=== PATIENT | male | born 1955 | race Caucasian/White ===

== ENCOUNTER 2020-10-26 17:54 | Observation (INO) | payer OTHER ==
[~2020-10-26] VITALS: Ht 167.6 cm; Wt 59.0 kg
[2020-10-26] MEDS ORDERED: LEVSOD150 PO (18:02)
[2020-10-26] MEDS ORDERED: BUPR75 PO (18:02)
[2020-10-26] MEDS ORDERED: TRAZ50 PO (18:02)
[2020-10-26 19:52] LABS: BASOPHILS ABSOLUTE AUTO 0.03 K/mm3 (0.00-0.23); BASOPHILS PERCENT AUTO 0 % (0-2); EOSINOPHILS ABSOLUTE AUTO 0.01 K/mm3 (0.00-0.68); EOSINOPHILS PERCENT AUTO 0 % (0-6); Hematocrit 36.2 % (37.0-53.0); Hemoglobin 13.4 g/dL (13.5-17.5); IMMATURE GRAN ABSOLUTE AUTO 0.04 K/mm3 (0.00-0.10); IMMATURE GRAN PERCENT AUTO 1 % (0-1); LYMPHOCYTES ABSOLUTE AUTO 1.19 K/mm3 (0.84-5.20); LYMPHOCYTES PERCENT AUTO 14 % (21-46); MONOCYTES ABSOLUTE AUTO 0.52 K/mm3 (0.16-1.47); MONOCYTES PERCENT AUTO 6 % (4-13); Mean Corpuscular HGB 32.1 pg (26.0-34.0); Mean Corpuscular Volume 87 fL (80-100); Mean Platelet Volume 10.5 fL (9.1-12.4); NEUTROPHILS ABSOLUTE AUTO 6.83 K/mm3 (1.96-9.15); NEUTROPHILS PERCENT AUTO 79 % (41-73); Platelet Count 98 K/mm3 (150-400); RDW Standard Deviation 41.1 fL (35.1-46.3); Red Blood Cell Count 4.17 M/mm3 (4.30-5.90); White Blood Cell Count 8.62 K/mm3 (4.00-11.30)
[2020-10-26 20:09] LABS: Alanine Aminotransfer (ALT/SGP 147 U/L (12-78); Albumin, Blood 3.3 g/dL (3.4-5.0); Albumin/Globulin Ratio 1.4 (0.8-1.8); Alk Phos 34 U/L (50-136); Anion Gap 12 mmol/L (6-16); Aspartate Aminotrans (AST/SGOT 143 U/L (12-37); Bilirubin, Total 1.8 mg/dL (0.1-1.0); Blood Urea Nitrogen 28 mg/dL (8-24); CO2, Blood 26 mmol/L (21-32); Calcium, Blood 7.9 mg/dL (8.5-10.1); Chloride, Blood 99 mmol/L (98-108); Creatinine, Blood 0.82 mg/dL (0.60-1.20); Globulin, Blood 2.3 g/dL (2.2-4.0); Glomerular Filtration Rate >60 (60-); Glucose, Blood 151 mg/dL (70-99); Magnesium, Blood 2.3 mg/dL (1.6-2.4); Potassium, Blood 3.5 mmol/L (3.5-5.5); Sodium, Blood 137 mmol/L (136-145); Total Protein, Blood 5.6 g/dL (6.4-8.2)
[2020-10-26 21:56] LABS: Ethanol (Alcohol), Blood, Med <3 mg/dL
[2020-10-27 09:00] LABS: Alanine Aminotransfer (ALT/SGP 137 U/L (12-78); Albumin, Blood 3.2 g/dL (3.4-5.0); Albumin/Globulin Ratio 1.3 (0.8-1.8); Alk Phos 37 U/L (50-136); Anion Gap 7 mmol/L (6-16); Aspartate Aminotrans (AST/SGOT 116 U/L (12-37); Bilirubin, Total 1.7 mg/dL (0.1-1.0); Blood Urea Nitrogen 18 mg/dL (8-24); Bun/Creatinine Ratio 23.1 (12.0-20.0); CO2, Blood 29 mmol/L (21-32); Calcium, Blood 7.4 mg/dL (8.5-10.1); Chloride, Blood 101 mmol/L (98-108); Creatinine, Blood 0.78 mg/dL (0.60-1.20); Globulin, Blood 2.4 g/dL (2.2-4.0); Glomerular Filtration Rate >60 (60-); Glucose, Blood 125 mg/dL (70-99); Magnesium, Blood 2.3 mg/dL (1.6-2.4); Potassium, Blood 3.3 mmol/L (3.5-5.5); Sodium, Blood 137 mmol/L (136-145); Total Protein, Blood 5.6 g/dL (6.4-8.2)
[2020-10-27 09:04] LABS: Phosphorus, Blood 0.9 mg/dL (2.5-4.9)
[2020-10-27] MEDS ORDERED: CHLO25 PO (12:03)
== END 2020-10-27 16:13 | disposition home or self-care (01) ==
LOC: ER 17:54 → ERHOLD 17:55
PROVIDERS: Emergency Medicine; Family Medicine; ADMIT Internal Medicine
DX: F10.232 Alcohol dependence with withdrawal with perceptual disturbance (principal); Y90.0 Blood alcohol level of less than 20 mg/100 ml; R74.01 Elevation of levels of liver transaminase levels; E83.39 Other disorders of phosphorus metabolism; E87.6 Hypokalemia; E44.0 Moderate protein-calorie malnutrition; F32.9 Major depressive disorder, single episode, unspecified; E03.9 Hypothyroidism, unspecified; F17.210 Nicotine dependence, cigarettes, uncomplicated; Z66 Do not resuscitate; Z88.6 Allergy status to analgesic agent; Z88.8 Allergy status to other drugs, medicaments and biological substances; Z79.899 Other long term (current) drug therapy
CPT/HCPCS: 36415; 70450; 80053; 83735; 84100; 85025; 96361; 96365; 96367; 96375; 99285-25; A9270; G0378; G0480; J1650; J2405; J3411; J3475; J3480; J7042; J7060

== ENCOUNTER 2021-09-05 17:19 | Inpatient (IN) | payer OTHER ==
[~2021-09-05] VITALS: Ht 167.6 cm; Wt 58.8 kg
[~2021-09-05 17:19] MED LIST: Budeprion Xl300 MG PO; CHLO25 PO; LEVSOD150 PO; TRAZ50 PO
[2021-09-05 18:35] LABS: Albumin, Blood 3.4 g/dL (3.4-5.0); Albumin/Globulin Ratio 0.8 (0.8-1.8); Bun/Creatinine Ratio 18.6 (12.0-20.0); Calcium, Blood 9.7 mg/dL (8.5-10.1); Creatinine, Blood 1.13 mg/dL (0.60-1.20); Globulin, Blood 4.5 g/dL (2.2-4.0); Potassium, Blood 3.9 mmol/L (3.5-5.5); Total Protein, Blood 7.9 g/dL (6.4-8.2)
[2021-09-05 18:39] LABS: BASOPHILS ABSOLUTE AUTO 0.05 K/mm3 (0.00-0.23); BASOPHILS PERCENT AUTO 0 % (0-2); EOSINOPHILS ABSOLUTE AUTO 0.03 K/mm3 (0.00-0.68); EOSINOPHILS PERCENT AUTO 0 % (0-6); Hematocrit 40.4 % (37.0-53.0); Hemoglobin 14.2 g/dL (13.5-17.5); IMMATURE GRAN ABSOLUTE AUTO 0.06 K/mm3 (0.00-0.10); IMMATURE GRAN PERCENT AUTO 1 % (0-1); LYMPHOCYTES ABSOLUTE AUTO 1.01 K/mm3 (0.84-5.20); LYMPHOCYTES PERCENT AUTO 8 % (21-46); MONOCYTES ABSOLUTE AUTO 1.24 K/mm3 (0.16-1.47); MONOCYTES PERCENT AUTO 10 % (4-13); Mean Corpuscular HGB 32.2 pg (26.0-34.0); Mean Corpuscular HGB Conc 35.1 g/dL (31.5-36.5); Mean Corpuscular Volume 92 fL (80-100); Mean Platelet Volume 9.1 fL (9.1-12.4); NEUTROPHILS ABSOLUTE AUTO 10.19 K/mm3 (1.96-9.15); NEUTROPHILS PERCENT AUTO 81 % (41-73); Platelet Count 287 K/mm3 (150-400); RDW Coefficient Variation 12.3 % (11.7-14.2); RDW Standard Deviation 42.2 fL (35.1-46.3); Red Blood Cell Count 4.41 M/mm3 (4.30-5.90); White Blood Cell Count 12.58 K/mm3 (4.00-11.30)
[2021-09-05 20:46] LABS: Source, Urine Clean Catch
[2021-09-05] MEDS ORDERED: TAMS.4ER PO (20:49)
[2021-09-05 21:00] LABS: Appearance, Urine Clear (Clear); Bilirubin, Urine Neg (Neg); Blood, Urine Neg (Neg); Color, Urine Yellow (P-Yellow); Glucose Qualitative, Urine Neg (Neg); Ketones, Urine 3+ (Neg); Leukocyte Esterase, Urine 1+ (Neg); Nitrite, Urine Neg (Neg); Protein, Urine 1+ (Neg); Urobilinogen, Urine 1+ (Normal)
[2021-09-05 21:15] LABS: Bacteria Few /hpf; Red Blood Cells, Urine 0-2 /hpf (0-2); Squamous Epithelial Cells Rare /hpf (Few); White Blood Cells, Urine 0-2 /hpf (0-5)
[2021-09-05 21:16] LABS: Amorphous Light (0-Heavy)
--- NOTE | 2021-09-05 23:50 | NUR ---
TRANSFER NOTE REPORT FROM APURVA WELLINGTON RN. PT TO FLOOR BY [facility] AND STANDS TO TRANSFER TO HOSPITAL BED. PT ALERT AND ORIENTED. ORIENTED TO ROOM AND CALL LIGHT. BED IN LOWEST POSITION. CALL LIGHT IN REACH.
[2021-09-06] MEDS ORDERED: MAGCHL64ER PO (00:58)
--- NOTE | 2021-09-06 04:32 | NUR ---
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 THE PATIENT IS A FULL CODE. HE IS ALERT AND ORIENTED X4. HE HAS SLIGHT SWELLING AND TENDERNESS TO THE PERIUMBILICAL AREA WITH A SMALL PATCH OF RED. NO WARMTH. CONSULT WAS CALLED TO SURGERY WHO WILL VISIT THE PATIENT TODAY. HE WAS MEDICATED X1 FOR PAIN AND IS RECEIVING IV NS AT 75 ML/HR. HE USES THE URINAL INDEPENDENTLY AND DID NOT HAVE A BM THIS SHIFT. PT HAS HAD DECREASED APPETITE RECENTLY - HAS BEEN NPO FOR POSSIBLE SURGERY.
[2021-09-06 05:16] LABS: BASOPHILS ABSOLUTE AUTO 0.06 K/mm3 (0.00-0.23); BASOPHILS PERCENT AUTO 1 % (0-2); EOSINOPHILS ABSOLUTE AUTO 0.08 K/mm3 (0.00-0.68); EOSINOPHILS PERCENT AUTO 1 % (0-6); Hematocrit 37.3 % (37.0-53.0); Hemoglobin 12.8 g/dL (13.5-17.5); IMMATURE GRAN ABSOLUTE AUTO 0.06 K/mm3 (0.00-0.10); IMMATURE GRAN PERCENT AUTO 1 % (0-1); LYMPHOCYTES ABSOLUTE AUTO 1.32 K/mm3 (0.84-5.20); LYMPHOCYTES PERCENT AUTO 11 % (21-46); MONOCYTES ABSOLUTE AUTO 1.41 K/mm3 (0.16-1.47); MONOCYTES PERCENT AUTO 11 % (4-13); Mean Corpuscular HGB 32.2 pg (26.0-34.0); Mean Corpuscular HGB Conc 34.3 g/dL (31.5-36.5); Mean Corpuscular Volume 94 fL (80-100); Mean Platelet Volume 9.1 fL (9.1-12.4); NEUTROPHILS ABSOLUTE AUTO 9.61 K/mm3 (1.96-9.15); NEUTROPHILS PERCENT AUTO 77 % (41-73); Platelet Count 266 K/mm3 (150-400); RDW Coefficient Variation 12.5 % (11.7-14.2); RDW Standard Deviation 43.8 fL (35.1-46.3); Red Blood Cell Count 3.97 M/mm3 (4.30-5.90); White Blood Cell Count 12.54 K/mm3 (4.00-11.30)
[2021-09-06 05:37] LABS: Albumin, Blood 2.6 g/dL (3.4-5.0); Albumin/Globulin Ratio 0.7 (0.8-1.8); Bilirubin, Total 0.5 mg/dL (0.1-1.0); Bun/Creatinine Ratio 16.4 (12.0-20.0); Calcium, Blood 8.3 mg/dL (8.5-10.1); Creatinine, Blood 1.1 mg/dL (0.60-1.20); Globulin, Blood 3.6 g/dL (2.2-4.0); Potassium, Blood 3.9 mmol/L (3.5-5.5); Total Protein, Blood 6.2 g/dL (6.4-8.2)
--- NOTE | 2021-09-06 06:44 | NUR ---
PT TO DAY SURGERY WITH DAY SURGERY RN SANTOSH
--- NOTE | 2021-09-06 07:12 | NUR ---
THE PATIENT WAS BROUGHT TO DAY SURGERY FOR HIS PROCEDURE.
--- NOTE | 2021-09-06 07:56 | NUR ---
09/06/21 0756 Stephanie Oswald NO PREOP ANTIBIOTICS ORDERED PER .
[2021-09-06] MEDS ORDERED: Amoxicillin875 MG PO (14:07)
[2021-09-06] MEDS ORDERED: VISBIOME 112.51 EACH PO (14:09)
--- NOTE | 2021-09-06 15:45 | NUR ---
DISCHARGE SUMMARY PATIENT IS ALERT AND ORIENTED. PATIENT HAD I&D ON ABDOMEN THIS MORNING. NO COMPLICATIONS NOTED. PATIENT HAS BEEN PLEASENT AND COOPERATIVE WITH CARE. PATIENT HAS BEEN IND IN ROOM THIS SHIFT. PATIENT WAS DISCHARGED HOME. PATIENT WAS READ DISCHARGE INSTRUCTIONS AND UNDERSTOOD. PATIENT WAS WHEELED OUT TO PATIENTS CAR BY THIS RN. MEDICATIONS FAXED TO PATIENTS PHARMACY OF CHOICE.
== END 2021-09-06 15:58 | disposition home or self-care (01) | DRG 674 ==
LOC: ER 17:19 → MEDS 22:13 → ER 23:45 → MEDS 23:55
PROVIDERS: Physician Assistant; Surgery; ADMIT Internal Medicine
PROC: 0W9F0ZZ Drainage of Abdominal Wall, Open Approach (ICD-10-PCS; principal; 2021-09-06 07:30)
DX: Q64.4 Malformation of urachus (principal); L02.211 Cutaneous abscess of abdominal wall; F32.A Depression, unspecified; N40.0 Benign prostatic hyperplasia without lower urinary tract symptoms; F10.20 Alcohol dependence, uncomplicated; E03.9 Hypothyroidism, unspecified; F17.210 Nicotine dependence, cigarettes, uncomplicated; M54.9 Dorsalgia, unspecified; D64.9 Anemia, unspecified; D72.828 Other elevated white blood cell count; I71.4 Abdominal aortic aneurysm, without rupture; G89.29 Other chronic pain; Z98.41 Cataract extraction status, right eye; Z98.42 Cataract extraction status, left eye; Z98.890 Other specified postprocedural states; Z88.8 Allergy status to other drugs, medicaments and biological substances; Z79.899 Other long term (current) drug therapy
CPT/HCPCS: 36415; 74177; 80053; 81001; 83605; 83690; 85025; 87040; 87070; 87075; 87086; 87205; 96365-59; 96375; 99285-25; A9270; J0692; J0696; J1100; J1170; J2370; J2405; J2704; J2795; J3010; J3370; J7030; J7050; J7060; J7120; Q9967